=== PATIENT | female | born 1990 | race Two or more races ===

== ENCOUNTER 2016-09-07 13:59 | Emergency (ER) | payer MEDICAID ==
[~2016-09-07] VITALS: Ht 165.1 cm; Wt 66.2 kg
[~2016-09-07 13:59] MED LIST: ACET-1079 PO; IBUP200T2 PO
[2016-09-07 20:45] VITALS: BP 113/67
== END 2016-09-07 21:40 | disposition home or self-care (01) ==
LOC: ER 13:59 → EEVIPCON 13:59 → ER 21:40
DX: S09.8XXA Other specified injuries of head, initial encounter (principal); Z90.89 Acquired absence of other organs; Y08.89XA Assault by other specified means, initial encounter; Y93.89 Activity, other specified; Y99.8 Other external cause status; Y92.89 Other specified places as the place of occurrence of the external cause
CPT/HCPCS: 70450